=== PATIENT | male | born 1980 | race Two or more races ===

== ENCOUNTER 2019-09-20 07:48 | Emergency (ER) | payer SELFPAY ==
[~2019-09-20] VITALS: Ht 175.3 cm; Wt 79.4 kg
--- NOTE | 2019-09-20 08:00 | NUR ---
patient came in to the er c/o left pinky laceration s/p cut by a skilsaw. On room air, breathing evenly and unlabored. kept comfortable, will continue to monitor accordingly.
[2019-09-20] MEDS ORDERED: TDAP [DIPH/PERTUSSIS/TET] 0.5 ML VIAL IM ONE ×2 (10:58→11:00)
[2019-09-20 11:09] VITALS: BP 135/71
--- NOTE | 2019-09-20 11:10 | NUR ---
Patient discharged to home in stable condition. Written and verbal after care instructions given. Patient verbalizes understanding of instruction.
== END 2019-09-20 11:10 | disposition home or self-care (01) ==
LOC: ER 07:48
DX: S61.217A Laceration without foreign body of left little finger without damage to nail, initial encounter (principal); W26.8XXA Contact with other sharp object(s), not elsewhere classified, initial encounter; Y93.89 Activity, other specified; Y92.89 Other specified places as the place of occurrence of the external cause; Y99.8 Other external cause status
CPT/HCPCS: 12041; 73130; 90471; 90715; 99284; A6403 ×2

== ENCOUNTER 2019-09-25 07:55 | Emergency (ER) | payer SELFPAY ==
[~2019-09-25] VITALS: Ht 175.3 cm; Wt 79.4 kg
[2019-09-25 08:00] VITALS: BP 128/89
--- NOTE | 2019-09-25 08:15 | NUR ---
Patient discharged to home in stable condition. Written and verbal after care instructions given. Patient verbalizes understanding of instruction.
== END 2019-09-25 08:15 | disposition home or self-care (01) ==
LOC: ER 07:56
DX: S61.217D Laceration without foreign body of left little finger without damage to nail, subsequent encounter (principal); Z60.2 Problems related to living alone; X58.XXXD Exposure to other specified factors, subsequent encounter